=== PATIENT | female | born 1955 | race Caucasian/White ===

== ENCOUNTER 2018-09-25 06:20 | Day surgery (SDC) | payer MEDICAID ==
[2018-09-25] MEDS ORDERED: Sodium Chloride 0.9% 1,000 ML IV SCH ×2 (06:30→07:15)
[2018-09-25] MEDS ORDERED: fentaNYL 100 MCG/2 ML SDV ONE (07:37)
[2018-09-25] MEDS ORDERED: Midazolam 1 MG/ML 2 ML SDV ONE (07:37)
[2018-09-25] MEDS ORDERED: Propofol 200 MG/20 ML SDV ONE (07:37)
[2018-09-25 08:57] VITALS: PULSE 59
--- NOTE | 2018-09-25 09:11 | OR ---
DATE OF PROCEDURE: 09/25/2018 PROCEDURE: Colonoscopy. FINDINGS: Normal colonoscopy. COMPLICATIONS: None. NETWORK ANNOUNCER: None. PREOPERATIVE DIAGNOSIS: Screening colonoscopy. POSTOPERATIVE DIAGNOSIS: Screening colonoscopy. RISKS: Risks, benefits, alternatives, and limitations including, but not limited to, infection, bleeding, and perforation were explained to the patient and wished to proceed. DESCRIPTION OF PROCEDURE: The patient was placed in the left lateral decubitus position. Digital rectal exam was performed without abnormality. The scope was introduced and advanced atraumatically to the ileocecal valve. The scope was brought back to the ascending, transverse, descending colon and retroflexed. No evidence of old or new blood. No masses. No polyps. No colitis. No abnormalities when retroflexed. The patient tolerated the procedure well. Indra Guzman MD /[id number]
[2018-09-25 09:15] VITALS: BP 139/73
== END 2018-09-25 09:59 | disposition home or self-care (01) ==
LOC: JP.SDS 06:20
PROVIDERS: ATTEND Surgery
DX: Z12.11 Encounter for screening for malignant neoplasm of colon (principal); I10 Essential (primary) hypertension; E78.5 Hyperlipidemia, unspecified; E87.6 Hypokalemia; F32.9 Major depressive disorder, single episode, unspecified; K21.9 Gastro-esophageal reflux disease without esophagitis; G43.909 Migraine, unspecified, not intractable, without status migrainosus
CPT/HCPCS: 45378; J2250; J2704; J3010; J7030